=== PATIENT | female | born 1995 | race Caucasian/White ===

== ENCOUNTER 2017-03-22 06:15 | Inpatient (IN) ==
[2017-03-22] MEDS ORDERED: BUTORPHANOL 2 MG/ML VIAL IV PRN (06:26)
[2017-03-22] MEDS ORDERED: ACETAMINOPHEN 325 MG TABLET PO PRN (06:26)
[2017-03-22] MEDS ORDERED: MEPERIDINE 50 MG/1 ML VIAL IV PRN (06:26)
[2017-03-22] MEDS ORDERED: ONDANSETRON 4 MG/2 ML VIAL IV PRN (06:26)
[2017-03-22] MEDS ORDERED: OXYTOCIN/LR 20 UNIT/1,000 ML BAG IV SCH (06:30)
[2017-03-22 06:56] LABS: Basophils % 0.2 % (0.0-0.8); Eosinophils # 0.1 10*3/uL (0.0-0.87); Eosinophils % 1.3 % (0.00-10.9); Hematocrit 34.5 VOL% (35.7-47.0); Hemoglobin 11.8 GM/DL (12.0-16.0); Immature Granulocytes % 0.7 %; Immature Granulocytes Absolute 0.07 #; Lymphocytes # 1.7 10*3/uL (1.4-4.0); Lymphocytes % 17.6 % (21.3-54.2); Mean Corpuscular HGB Conc 34.2 GM/DL (32-36); Mean Corpuscular Hemoglobin 32 PG (27-34); Mean Corpuscular Volume 92.2 FL (87-102); Mean Platelet Volume 10.1 FL (9.6-12.0); Monocytes # 0.6 10*3/uL (0.11-0.8); Monocytes % 6.6 % (1.7-12.7); Neutrophils # 6.9 10*3/uL (1.4-7.4); Neutrophils % 73.6 % (38.7-73.9); Platelet Count 180 T/CUMM (130-400); Red Blood Count 3.74 MC/CUMM (3.8-5.5); Red Cell Distribution Width 13.1 % (9.3-17.3); White Blood Count 9.4 T/CUMM (4-12)
[2017-03-22] MEDS: LACTATED RINGERS 1,000 ML IV SCH ×2 (07:51→10:53)
[2017-03-22] MEDS ORDERED: TERBUTALINE 1 MG/1 ML VIAL SUBCUT ONE ×2 (08:20→08:22)
[2017-03-22] MEDS ORDERED: FAMOTIDINE 20 MG/2 ML VIAL IV ONE (09:55)
[2017-03-22] MEDS ORDERED: CITRIC ACID/SODIUM CITRATE 30 ML UDCUP PO ONE (09:55)
[2017-03-22] MEDS ORDERED: ePHEDrine 50 MG/ML AMP IV PRN (09:55)
[2017-03-22] MEDS ORDERED: PROMETHAZINE 25 MG/1 ML VIAL IM ONE (09:55)
[2017-03-22] MEDS ORDERED: fentaNYL 2 MCG/ROPIV 0.2% EPID 150 ML EPIDURAL SCH (09:55)
[2017-03-22] MEDS ORDERED: hydrOXYzine HCL 25 MG/1 ML VIAL IM PRN ×2 (09:55→17:56)
[2017-03-22] MEDS: diphenhydrAMINE 50 MG/1 ML VIAL IV PRN ×2 (12:37→16:49)
[2017-03-22 14:00] LABS: Apearance,Urine CLEAR (Clear); Bilirubin,Urine Negative (Negative); Blood, Urine Negative (Negative); Glucose,Urine (UA) Negative (Negative); Ketones,Urine 5 mg/dL (Negative); Mucus,Urine Occasional /LPF (Occasional); Nitrite,Urine Negative (Negative); Protein,Urine Negative; RBC,Urine <1 /HPF (0-4); Urine Color Yellow (Yellow); Urine Specific Gravity 1.006 (1.001-1.035); Urine Urobilinogen < 2.0 EU/DL (0.2-1.0); WBC,Urine <1 /HPF (0-6)
--- NOTE | 2017-03-22 15:21 | OB/GYN History & Physical ---
History of Present Illness Chief complaint: In for elective induction of labor. History of present illness: Ms. Mcintyre is a 22 year old female who is a 2 para 1 living 1. Her GHAZALA is 03/28[birth year]2017 for an estimated gestational age of 39 and 1 weeks. She presents to the labor department for elective induction of labor due to term . The risk and benefits of been thoroughly discussed with this patient significant other, plan of care has been discussed with Dr. Hogan and all parties are in agreement with plan. The patient [facility] at [facility] and she received routine care and her course was uneventful. The patient has had a previous vaginal delivery of a liveborn male that weighed 8 lbs. 1 oz. and she reported no comp occasions with that . labs: She is O+, rubella is immune, RPR is nonreactive, hepatitis B is negative, HIV is negative, and GBS culture is negative. Review of systems is negative with the exception of above. Home Medications Medication Instructions Recorded Confirmed Type No122/Iron/Folic Acid 1 tablet PO DAILY 03/22/17 03/22/17 History [ Multi Tablet] Allergies Allergy/AdvReac Type Severity Reaction Status Date / Time [facility] [place] [facility] Allergy Mild HIVES Verified 03/22/17 06:25 12 point system: reviewed and no additional remarkable complaints except as stated Medical,Surgical,& Family Hx - Medical History Medical History: noncontributory Reproductive: No history of: Ectopic , Complication - Surgical History Abdominal Surgeries: Surgical HX of: Abdominal Surgery (umbilical hernia repair) Reproductive Surgeries: Patient denies;: Section - Family History Family History: Reports;: Family Cancer (pgf- pancreatic), Family Diabetes (pfm) , Family Heart Disease (pgm), Family Hypertension (mgf) Denies;: Family Anesthesia Reaction, Family Hematology, Family Psychiatric Problems, Family Stroke - Social History Smoking Status: Former smoker Frequency of Alcohol Use: None Type of Drug Use: None Marital Status: Lives With:: Spouse Functional capacity: independent ambulation Exam [employer] - Constitutional Vitals: Vital Signs Temp Pulse Resp BP Pulse Ox 03/22/17 12:00 97.6 F 94 H 17 102/53 100 03/22/17 06:24 97.5 F L 106 H 18 125/63 99 General appearance: no acute distress - Antepartum / Post Antepartum Exam Cervix - Dilatation: 2 cm on admission Effacement: 70% Station: -2 Rupture: Intact Presentation: Vertex Heart Rate: 140 Breast: bilateral: normal Abdomen obstetrics: Present: bowel sounds normal Vagina: Present: normal moisture, discharge Uterus exam: Present: enlarged Anus/Rectum: Present: normal perianal skin - Head Head exam: Present: normal inspection - Respiratory Respiratory exam: Present: clear to auscultation bilaterally - Cardiovascular Cardiovascular exam: Present: regular rate and rhythm - GI/Abdominal GI/Abdominal exam: Present: normal bowel sounds, soft - Extremities Exam Extremities exam: Present: normal inspection - Neurological Exam Neurological exam: Present: alert, oriented X3 - Psychiatric Psychiatric exam: Present: normal affect, normal mood - Skin Skin exam: Present: normal color, warm Assessment and Plan (1) 39 weeks gestation of Status: Acute Assessment and plan: Admit IV fluids IV Pitocin per protocol Artificial rupture membranes when appropriate Internal monitors if indicated Epidural anesthesia if desired Anticipate Current Visit: Yes Results - Labs CBC & BMP: 03/22/17 06:41
[2017-03-22] MEDS ORDERED: ACETAMINOPHEN/CODEINE 300-30 MG TABLET PO PRN (15:29)
--- NOTE | 2017-03-22 15:32 | Event Note ---
HPI: Patient presented to the labor department for elective induction of labor. She was admitted for IV Pitocin and artificial rupture membranes. The risk and benefits were thoroughly discussed with this patient. Stage I: The patient was admitted and received IV Pitocin per protocol. Artificial rupture membranes was performed clear fluid noted. The patient progressed in labor with a CAT 1 tracing. An epidural was obtained for pain control. The patient continued to progress in labor with without incident. Stage II: The patient was complete. She was instructed to push by the nurse. She pushed for approximately 20 minutes. The 's head was then delivered the mouth and nose were suctioned on perineum. At 1453 a viable female was noted. Apgars were 8 at 1 minute and 9 at 5 minutes. weight was 7 pounds and 15 ounces. A cord pH was obtained and sent to the lab. The infant was placed on the mom's abdomen for skin to skin bonding. Stage III: A spontaneous delivery of a Spencer placenta with three-vessel cord noted. The placenta was further examined and appeared to be grossly intact. The vagina and cervix was inspected with a first-degree perineal laceration noted. The laceration was repaired in the usual fashion. Epidural anesthesia remain in effect on repair. Estimated blood loss was approximately 150 cc. At the time of dictation mother and baby are both in stable condition.
[2017-03-22] MEDS ORDERED: DIPH/TET/ACEL PERT BOOSTER VACCINE 0.5 ML VIAL IM ONE (17:24)
[2017-03-22] MEDS ORDERED: BISACODYL 10 MG SUPP RECTAL PRN (17:24)
[2017-03-22] MEDS ORDERED: HYDROCORTISONE 2.5% RECTAL CREAM 30 GM TUBE TOP PRN (17:24)
[2017-03-22] MEDS ORDERED: LANOLIN 50% CREAM 0.3 OZ TUBE TOP PRN (17:24)
[2017-03-22] MEDS ORDERED: BENZOCAINE 20%/MENTHOL 0.5% SPRAY 56 GM CAN TOP PRN (17:24)
[2017-03-22] MEDS ORDERED: MEASLES/MUMPS/RUBELLA VACCINE 0.5 ML VIAL SUBCUT ONE (17:24)
[2017-03-22] MEDS ORDERED: oxyCODONE/ACETAMINOPHEN 5-325 MG TABLET PO PRN (17:24)
[2017-03-22] MEDS ORDERED: WITCH HAZEL PADS 100/JAR TOP PRN (17:24)
[2017-03-22] MEDS ORDERED: RHO(D) IMMUNE GLOBULIN 300 MCG SYRINGE IM ONE (17:24)
[2017-03-22] MEDS ORDERED: OXYTOCIN/LR 20 UNIT/1,000 ML BAG IV ONE (17:55)
[2017-03-22] MEDS: oxyCODONE/ACETAMINOPHEN 5-325 MG TABLET PO PRN (20:15)
[2017-03-22] MEDS: DOCUSATE SODIUM 100 MG CAPSULE PO SCH (20:55)
[2017-03-22] MEDS: IBUPROFEN 800 MG TABLET PO PRN (22:42)
[2017-03-23 04:01] LABS: Basophils % 0.3 % (0.0-0.8); Eosinophils # 0.2 10*3/uL (0.0-0.87); Eosinophils % 1.3 % (0.00-10.9); Hematocrit 31.9 VOL% (35.7-47.0); Hemoglobin 10.6 GM/DL (12.0-16.0); Immature Granulocytes % 0.5 %; Immature Granulocytes Absolute 0.06 #; Lymphocytes # 1.7 10*3/uL (1.4-4.0); Lymphocytes % 14.3 % (21.3-54.2); Mean Corpuscular HGB Conc 33.2 GM/DL (32-36); Mean Corpuscular Hemoglobin 31 PG (27-34); Mean Corpuscular Volume 93.8 FL (87-102); Monocytes # 0.9 10*3/uL (0.11-0.8); Monocytes % 7.8 % (1.7-12.7); Neutrophils # 9.1 10*3/uL (1.4-7.4); Neutrophils % 75.8 % (38.7-73.9); Platelet Count 185 T/CUMM (130-400); Red Cell Distribution Width 13.1 % (9.3-17.3)
[2017-03-23] MEDS: DOCUSATE SODIUM 100 MG CAPSULE PO SCH ×2 (09:55→20:50)
--- NOTE | 2017-03-23 11:11 | Progress Note ---
Exam (Progress Note) - Constitutional Vitals: Period Temp Pulse Resp BP Sys/Hernandez Pulse Ox Last 24 Hr 96.6 F-98.7 F 71-106 17-18 99-127/53-71 95-100 Results - Labs CBC & BMP: 03/23/17 03:48 Quality Measures - VTE Contraindication to Pharmacological VTE Prophylaxis: Clinical assessment deems Pt at low risk, no prophalaxis needed Specialty Discharge - Follow Up or Referrals Follow up with: Yamilka Hogan MD [Physician] - 04/26/17 2:00 pm
[2017-03-23] MEDS: IBUPROFEN 800 MG TABLET PO PRN (12:18)
[2017-03-23] MEDS: oxyCODONE/ACETAMINOPHEN 5-325 MG TABLET PO PRN (12:18)
--- NOTE | 2017-03-23 23:08 | Anesthesia Post-Op ---
Anesthesia Post OP - Post Ansesthetic Evaluation Patient seen in post op: Yes Resp: within normal limits CV: within normal limits Mental: within normal limits Temp: within normal limits [id number]: within normal limits Nausea and Vomiting: within normal limits Pain: within normal limits
[2017-03-24] MEDS: IBUPROFEN 800 MG TABLET PO PRN (00:10)
[2017-03-24] MEDS: DOCUSATE SODIUM 100 MG CAPSULE PO SCH (08:53)
--- NOTE | 2017-03-24 09:27 | Progress Note ---
Family Medicine PN Sub Interval history: Patient complains of lower back discomfort on her second postoperative day Abdomen soft back is slightly tender at the incision epidural puncture site. No evidence of any type of drainage erythema redness. She also complains of a mild headache. Will increase her p.o. fluids, additional caffeine products will also be administered, and also analgesic. Patient will be observed in the next 24 hours with possibly being discharged. Exam (Progress Note) - Constitutional Vitals: Period Temp Pulse Resp BP Sys/Hernandez Pulse Ox Last 24 Hr 96.8 F-98.3 F 78-90 16-20 111-120/59-70 96-100 Results - Labs CBC & BMP: 03/23/17 03:48 Quality Measures - VTE Contraindication to Pharmacological VTE Prophylaxis: Clinical assessment deems Pt at low risk, no prophalaxis needed Specialty Discharge - Follow Up or Referrals Follow up with: Yamilka Hogan MD [Physician] - 04/26/17 2:00 pm
[2017-03-24 14:53] VITALS: BP 134/71
== END 2017-03-24 17:00 | disposition home or self-care (01) | DRG 560 ==
LOC: N.LDOUT 06:15 → N.LD 06:18 → N.OB 20:37
PROVIDERS: ADMIT Obstetrics & Gynecology; ATTEND Obstetrics & Gynecology

== ENCOUNTER 2019-09-08 00:45 | Inpatient (IN) ==
[2019-09-08] MEDS ORDERED: ONDANSETRON 4 MG/2 ML VIAL IV PRN ×2 (00:55→13:47)
[2019-09-08] MEDS ORDERED: LACTATED RINGERS 250 ML IV ONE (00:55)
[2019-09-08 01:22] LABS: Basophils % 0.3 % (0.0-0.8); Eosinophils % 0.1 % (0.00-10.9); Hematocrit 35.1 VOL% (35.7-47.0); Hemoglobin 11.4 GM/DL (12.0-16.0); Immature Granulocytes % 0.5 %; Immature Granulocytes Absolute 0.06 #; Lymphocytes % 18.1 % (21.3-54.2); Mean Corpuscular HGB Conc 32.5 GM/DL (32-36); Mean Corpuscular Volume 92.9 FL (87-102); Mean Platelet Volume 9.9 FL (9.6-12.0); Monocytes % 5.6 % (1.7-12.7); Neutrophils % 75.4 % (38.7-73.9); Platelet Count 180 T/CUMM (130-400); Red Blood Count 3.78 MC/CUMM (3.8-5.5); Red Cell Distribution Width 13.2 % (9.3-17.3); White Blood Count 11.1 T/CUMM (4-12)
[2019-09-08] MEDS ORDERED: AMPICILLIN INJ 2,000 MG in SODIUM CHLORIDE 0.9% 100 ML IV ONE (01:32)
[2019-09-08 01:38] LABS: Apearance,Urine Slightly Hazy (Clear); Bacteria,Urine Occasional /HPF (Few); Bilirubin,Urine Negative (Negative); Blood, Urine Negative (Negative); Glucose,Urine (UA) Negative (Negative); Ketones,Urine Negative (Negative); Mucus,Urine Few /LPF (Occasional); Nitrite,Urine Negative (Negative); Protein,Urine Negative; RBC,Urine 3 /HPF (0-4); Renal Epithelial Cells,Urine Moderate /HPF (<1); Squamous Epithelial Cell,Urine Occasional /HPF (0-10); Urine Color Yellow (Yellow); Urine Specific Gravity 1.023 (1.001-1.035); Urine Urobilinogen < 2.0 EU/DL (0.2-1.0); WBC,Urine 6 /HPF (0-6)
[2019-09-08 01:46] LABS: Albumin 2.9 G/DL (3.4-5.0); Bilirubin,Total 1.2 MG/DL (0.2-1.0); Calcium 8.8 MG/DL (8.5-10.1); Osmolality,Calculated 267.1 MOS/KG (273-304)
[2019-09-08] MEDS: LACTATED RINGERS 1,000 ML IV SCH ×2 (02:18→11:21)
[2019-09-08] MEDS ORDERED: ALUMINUM/MAGNES/SIMETH MAX STR 30 ML UDCUP PO PRN (02:21)
[2019-09-08] MEDS: AMPICILLIN INJ 1,000 MG in SODIUM CHLORIDE 0.9% 100 ML IV SCH ×2 (05:43→10:06)
[2019-09-08] MEDS ORDERED: OXYTOCIN/LR 20 UNIT/1,000 ML BAG IV SCH (09:30)
[2019-09-08] MEDS ORDERED: LACTATED RINGERS 1,000 ML IV ONE ×2 (10:12→13:37)
[2019-09-08] MEDS ORDERED: CITRIC ACID/SODIUM CITRATE 30 ML UDCUP PO ONE (10:12)
[2019-09-08] MEDS ORDERED: FAMOTIDINE 20 MG/2 ML VIAL IV ONE (10:12)
[2019-09-08] MEDS ORDERED: hydrOXYzine HCL 25 MG/1 ML VIAL IM PRN (10:13)
[2019-09-08] MEDS ORDERED: diphenhydrAMINE 50 MG/1 ML VIAL IV PRN ×3 (10:13→18:00)
[2019-09-08] MEDS ORDERED: NALOXONE 0.4 MG/ML VIAL IV PRN (10:13)
[2019-09-08] MEDS ORDERED: ePHEDrine 50 MG/ML AMP IV PRN (10:13)
[2019-09-08] MEDS ORDERED: PROMETHAZINE 25 MG/1 ML VIAL IM ONE (10:13)
[2019-09-08] MEDS ORDERED: fentaNYL 2 MCG/ROPIV 0.2% EPID 100 ML EPIDURAL SCH (10:30)
[2019-09-08] MEDS ORDERED: TERBUTALINE 1 MG/1 ML VIAL ONE (12:23)
[2019-09-08] MEDS ORDERED: CLINDAMYCIN INJ 900 MG in PREMIX 1 EACH IV ONE (12:28)
[2019-09-08 13:05] LABS: Cord Arterial Blood HCO3 21.5 MMOL/L
[2019-09-08 13:08] LABS: Cord Venous Blood HCO3 22.3 MMOL/L; Cord Venous Blood PCO2 47.5 MMHG; Cord Venous Blood PO2 24.6
[2019-09-08] MEDS ORDERED: SODIUM BICARBONATE 10 MEQ/10 ML SYRINGE IV ONE (13:35)
[2019-09-08] MEDS ORDERED: MORPHINE 10 MG/10 ML VIAL ONE (13:36)
[2019-09-08] MEDS ORDERED: fentaNYL 100 MCG/2 ML VIAL ONE (13:36)
[2019-09-08] MEDS ORDERED: PHENYLEPHRINE 1 MG/10 ML SYRINGE IV ONE (13:37)
[2019-09-08] MEDS ORDERED: ONDANSETRON 4 MG/2 ML VIAL ONE (13:37)
[2019-09-08] MEDS ORDERED: LIDOCAINE MPF 2% /EPI 20 ML VIAL ONE (13:37)
[2019-09-08] MEDS ORDERED: MAGNESIUM HYDROXIDE SUSP 30 ML UDCUP PO PRN (13:47)
[2019-09-08] MEDS ORDERED: OXYTOCIN/LR 20 UNIT/1,000 ML BAG IV ONE (13:47)
[2019-09-08] MEDS ORDERED: ACETAMINOPHEN 325 MG TABLET PO PRN (13:47)
[2019-09-08] MEDS ORDERED: RHO(D) IMMUNE GLOBULIN 300 MCG SYRINGE IM ONE (13:47)
[2019-09-08] MEDS ORDERED: SIMETHICONE CHEW 80 MG TABLET PO PRN (13:47)
[2019-09-08 13:56] LABS: Apearance,Urine CLEAR (Clear); Bilirubin,Urine Negative (Negative); Blood, Urine Negative (Negative); Glucose,Urine (UA) Negative (Negative); Ketones,Urine Negative (Negative); Mucus,Urine Occasional /LPF (Occasional); Nitrite,Urine Negative (Negative); Protein,Urine Negative; Squamous Epithelial Cell,Urine Occasional /HPF (0-10); Urine Color Yellow (Yellow); Urine Specific Gravity 1.011 (1.001-1.035); Urine Urobilinogen < 2.0 EU/DL (0.2-1.0)
[2019-09-08] MEDS ORDERED: LACTATED RINGERS 1,000 ML IV SCH (14:00)
[2019-09-08] MEDS ORDERED: CEFAZOLIN IV SCH (14:00)
[2019-09-08 15:08] LABS: Hematocrit 29.8 VOL% (35.7-47.0); Hemoglobin 9.9 GM/DL (12.0-16.0)
[2019-09-08] MEDS ORDERED: diphenhydrAMINE 50 MG/1 ML VIAL ONE (17:55)
[2019-09-08 21:13] LABS: Basophils % 0.2 % (0.0-0.8); Hematocrit 33.1 VOL% (35.7-47.0); Hemoglobin 10.6 GM/DL (12.0-16.0); Immature Granulocytes % 0.6 %; Immature Granulocytes Absolute 0.09 #; Lymphocytes # 0.9 10*3/uL (1.4-4.0); Lymphocytes % 6.2 % (21.3-54.2); Mean Platelet Volume 9.9 FL (9.6-12.0); Monocytes % 4.3 % (1.7-12.7); Neutrophils % 88.7 % (38.7-73.9); Platelet Count 179 T/CUMM (130-400); Red Blood Count 3.52 MC/CUMM (3.8-5.5); Red Cell Distribution Width 13.1 % (9.3-17.3); White Blood Count 14.8 T/CUMM (4-12)
[2019-09-08] MEDS: DOCUSATE SODIUM 100 MG CAPSULE PO SCH (21:16)
[2019-09-08] MEDS: CLINDAMYCIN INJ 900 MG in PREMIX 1 EACH IV SCH (21:25)
[2019-09-08] MEDS: HydrOXYzine PAMOATE 25 MG CAPSULE PO PRN (22:33)
[2019-09-08] MEDS: IBUPROFEN 800 MG TABLET PO PRN (23:51)
[2019-09-09] MEDS: CLINDAMYCIN INJ 900 MG in PREMIX 1 EACH IV SCH (05:10)
[2019-09-09 06:06] LABS: Basophils % 0.3 % (0.0-0.8); Eosinophils % 0.1 % (0.00-10.9); Hemoglobin 9.9 GM/DL (12.0-16.0); Immature Granulocytes % 0.5 %; Immature Granulocytes Absolute 0.06 #; Lymphocytes # 1.4 10*3/uL (1.4-4.0); Lymphocytes % 12.4 % (21.3-54.2); Mean Corpuscular HGB Conc 31.9 GM/DL (32-36); Mean Corpuscular Volume 93.9 FL (87-102); Mean Platelet Volume 10.1 FL (9.6-12.0); Monocytes % 6.7 % (1.7-12.7); Platelet Count 174 T/CUMM (130-400); Red Cell Distribution Width 13.2 % (9.3-17.3); White Blood Count 11.5 T/CUMM (4-12)
[2019-09-09] MEDS: HydrOXYzine PAMOATE 25 MG CAPSULE PO PRN (07:20)
[2019-09-09] MEDS: METOCLOPRAMIDE 10 MG TABLET PO SCH ×3 (08:33→23:32)
[2019-09-09] MEDS: MULTIVITAMIN (PRENATAL) TABLET PO SCH (08:33)
[2019-09-09] MEDS: FERROUS SULFATE 325 MG TABLET PO SCH (08:33)
[2019-09-09] MEDS: DOCUSATE SODIUM 100 MG CAPSULE PO SCH ×2 (08:33→21:27)
[2019-09-09] MEDS ORDERED: diphenhydrAMINE CAP 50 MG CAPSULE PO ONE (16:58)
[2019-09-09] MEDS: IBUPROFEN 800 MG TABLET PO PRN (17:00)
[2019-09-10] MEDS: IBUPROFEN 800 MG TABLET PO PRN (02:58)
[2019-09-10 07:13] VITALS: BP 118/61
[2019-09-10] MEDS: FERROUS SULFATE 325 MG TABLET PO SCH (08:07)
[2019-09-10] MEDS: DOCUSATE SODIUM 100 MG CAPSULE PO SCH (08:07)
[2019-09-10] MEDS: MULTIVITAMIN (PRENATAL) TABLET PO SCH (08:07)
[2019-09-10] MEDS: METOCLOPRAMIDE 10 MG TABLET PO SCH (08:08)
== END 2019-09-10 13:30 | disposition home or self-care (01) | DRG 788 ==
LOC: N.LDOUT 00:45 → N.LD 00:46 → N.OB 17:35
PROVIDERS: ADMIT Obstetrics & Gynecology; ATTEND Obstetrics & Gynecology
PROC: LDCSECT (ICD-10-PCS; 2019-09-08 12:30)

== ENCOUNTER 2022-05-16 23:10 | Observation (INO) ==
[2022-05-16] MEDS ORDERED: BICILLIN LA 1,200,000 UNIT/2 ML SYRINGE IM STA (23:48)
[2022-05-17 00:23] LABS: Basophils % 0.2 % (0.0-0.8); Eosinophils # 0.1 10*3/uL (0.0-0.87); Eosinophils % 1.4 % (0.00-10.9); Hematocrit 36.3 VOL% (35.7-47.0); Hemoglobin 12.3 GM/DL (12.0-16.0); Immature Granulocytes % 0.2 %; Immature Granulocytes Absolute 0.01 #; Lymphocytes # 1.3 10*3/uL (1.4-4.0); Lymphocytes % 27.4 % (21.3-54.2); Mean Corpuscular HGB Conc 33.9 GM/DL (32-36); Mean Corpuscular Volume 92.4 FL (87-102); Mean Platelet Volume 9.4 FL (9.6-12.0); Monocytes # 0.6 10*3/uL (0.11-0.8); Monocytes % 12.3 % (1.7-12.7); Neutrophils % 58.5 % (38.7-73.9); Platelet Count 231 T/CUMM (130-400); Red Blood Count 3.93 MC/CUMM (3.8-5.5); Red Cell Distribution Width 11.9 % (9.3-17.3); White Blood Count 4.9 T/CUMM (4-12)
[2022-05-17 00:37] LABS: Alanine Aminotransferase 26 U/L (13-56); Albumin 3.3 G/DL (3.4-5.0); Alkaline Phosphatase 61 U/L (45-117); Aspartate Amino Transferase 22 U/L (0-37); Bilirubin,Total < 0.39 MG/DL (0.20-1.00); Blood Urea Nitrogen 9 MG/DL (7-18); Calcium 8.1 MG/DL (8.5-10.1); Carbon Dioxide 27 MMOL/L (21-32); Chloride 107 MMOL/L (98-107); Glucose 99 MG/DL (74-106); Osmolality,Calculated 277.4 MOS/KG (273-304); Potassium 3.3 MMOL/L (3.5-5.1); Sodium 140 MMOL/L (136-145); Total Protein 6.6 G/DL (6.4-8.2)
[2022-05-17] MEDS ORDERED: MAGNESIUM HYDROXIDE SUSP 30 ML UDCUP PO PRN (03:10)
[2022-05-17] MEDS: SODIUM CHLORIDE 0.9% 1,000 ML IV SCH ×2 (03:10→11:51)
[2022-05-17] MEDS ORDERED: BISACODYL 10 MG SUPP RECTAL PRN (03:10)
[2022-05-17] MEDS ORDERED: ONDANSETRON 4 MG/2 ML VIAL IV PRN (03:10)
[2022-05-17] MEDS ORDERED: ACETAMINOPHEN 325 MG TABLET PO PRN (03:10)
[2022-05-17 05:57] LABS: Bilirubin,Urine Negative (Negative); Blood, Urine Negative (Negative); Glucose,Urine (UA) Negative (Negative); Ketones,Urine Negative (Negative); Mucus,Urine Occasional /LPF (Occasional); Nitrite,Urine Negative (Negative); Protein,Urine Negative (Negative); RBC,Urine 1 /HPF (0-4); Squamous Epithelial Cell,Urine Occasional /HPF (0-10); Urine Appearance Clear (Clear); Urine Color Yellow (Yellow); Urine Specific Gravity 1.025 (1.001-1.035); Urine Urobilinogen 0.2 eU/dL (<2.0)
[2022-05-17 06:22] LABS: Basophils % 0.2 % (0.0-0.8); Eosinophils # 0.1 10*3/uL (0.0-0.87); Eosinophils % 2.1 % (0.00-10.9); Hematocrit 33.6 VOL% (35.7-47.0); Hemoglobin 11.6 GM/DL (12.0-16.0); Immature Granulocytes % 0.2 %; Immature Granulocytes Absolute 0.01 #; Lymphocytes # 1.4 10*3/uL (1.4-4.0); Lymphocytes % 32.9 % (21.3-54.2); Mean Corpuscular HGB Conc 34.5 GM/DL (32-36); Mean Corpuscular Volume 91.6 FL (87-102); Mean Platelet Volume 9.1 FL (9.6-12.0); Monocytes # 0.5 10*3/uL (0.11-0.8); Monocytes % 10.5 % (1.7-12.7); Neutrophils % 54.1 % (38.7-73.9); Platelet Count 222 T/CUMM (130-400); Red Blood Count 3.67 MC/CUMM (3.8-5.5); Red Cell Distribution Width 11.8 % (9.3-17.3); White Blood Count 4.3 T/CUMM (4-12)
[2022-05-17 06:54] LABS: Alanine Aminotransferase 26 U/L (13-56); Albumin 3.1 G/DL (3.4-5.0); Alkaline Phosphatase 61 U/L (45-117); Aspartate Amino Transferase 19 U/L (0-37); Bilirubin,Total < 0.39 MG/DL (0.20-1.00); Blood Urea Nitrogen 7 MG/DL (7-18); Calcium 8.1 MG/DL (8.5-10.1); Carbon Dioxide 24 MMOL/L (21-32); Chloride 110 MMOL/L (98-107); Glucose 94 MG/DL (74-106); Osmolality,Calculated 278.3 MOS/KG (273-304); Potassium 3.1 MMOL/L (3.5-5.1); Sodium 141 MMOL/L (136-145)
[2022-05-17] MEDS: DOCUSATE SODIUM 100 MG CAPSULE PO SCH ×2 (09:00→20:39)
[2022-05-17] MEDS ORDERED: PANTOPRAZOLE 40 MG VIAL IV SCH (09:00)
[2022-05-17] MEDS ORDERED: AZITHROMYCIN 250 MG TABLET PO ONE (09:28)
[2022-05-17] MEDS: POTASSIUM CHLORIDE 20 MEQ TABLET PO PRN ×4 (10:53→16:37)
[2022-05-17] MEDS: PANTOPRAZOLE 40 MG TABLET PO SCH (20:39)
[2022-05-18] MEDS ORDERED: POTASSIUM CHLORIDE 20 MEQ TABLET PO PRN (04:00)
[2022-05-18 07:01] LABS: Calcium 8.4 MG/DL (8.5-10.1); Osmolality,Calculated 272.7 MOS/KG (273-304); Potassium 3.8 MMOL/L (3.5-5.1)
[2022-05-18] MEDS: PANTOPRAZOLE 40 MG TABLET PO SCH (08:47)
[2022-05-18] MEDS: DOCUSATE SODIUM 100 MG CAPSULE PO SCH (08:47)
[2022-05-18] MEDS ORDERED: AZITHROMYCIN 250 MG TABLET PO SCH (09:00)
[2022-05-18 11:37] VITALS: BP 110/63
== END 2022-05-18 12:25 | disposition home or self-care (01) ==
LOC: N.ED 23:10 → INTOOBSV 05-17 01:23 → N.OB 05-17 01:23
PROVIDERS: ADMIT Obstetrics & Gynecology; ATTEND Obstetrics & Gynecology